=== PATIENT | female | born 1990 | race Two or more races ===

== ENCOUNTER 2016-12-16 14:01 | Outpatient (CLI) | payer MEDICAID ==
[2016-12-16 14:49] VITALS: BMI 28.2
== END 2016-12-16 15:20 | disposition home or self-care (01) ==
LOC: FBCOUT 14:01 → FBC 14:03 → FBCOUT 15:20
PROVIDERS: ATTEND Family Medicine
DX: O46.90 Antepartum hemorrhage, unspecified, unspecified trimester (principal); Z3A.00 Weeks of gestation of pregnancy not specified
CPT/HCPCS: 59025; 81002; G0463

== ENCOUNTER 2016-12-18 01:04 | Outpatient (CLI) | payer MEDICAID | END 2016-12-18 03:18 | disposition home or self-care (01) | LOC: FBCOUT 01:04 → FBC 01:04 → FBCOUT 03:18 | PROVIDERS: ATTEND Family Medicine | DX: O47.9 False labor, unspecified (principal); Z3A.00 Weeks of gestation of pregnancy not specified | CPT/HCPCS: 59025; 81002; G0463 ==

== ENCOUNTER 2016-12-18 08:38 | Outpatient (CLI) | payer MEDICAID ==
[2016-12-18 08:58] VITALS: BMI 28.7
== END 2016-12-18 12:06 | disposition home or self-care (01) ==
LOC: FBCOUT 08:38 → FBC 08:42 → FBCOUT 12:06
PROVIDERS: ATTEND Family Medicine
DX: O47.9 False labor, unspecified (principal); Z3A.00 Weeks of gestation of pregnancy not specified
CPT/HCPCS: 59025; 81002; G0463

== ENCOUNTER 2016-12-19 20:20 | Inpatient (IN) | payer MEDICAID ==
[2016-12-19 20:42] VITALS: BMI 28.2
[2016-12-19] MEDS ORDERED: PROMETHAZINE HCL 25 MG/ML VIAL IM ONE (22:36)
[2016-12-19] MEDS ORDERED: MORPHINE SULFATE 10 MG/ML SYRINGE IM ONE (22:37)
[2016-12-20] MEDS ORDERED: OXYTOCIN IN LR 500 ML IV ONE (01:20)
[2016-12-20] MEDS ORDERED: MINERAL OIL 25 ML BOT ONE (01:26)
[2016-12-20] MEDS ORDERED: IV START KIT ONE (01:26)
[2016-12-20] MEDS ORDERED: OXYTOCIN 10 UNITS/ML VIAL ONE (01:26)
[2016-12-20] MEDS ORDERED: LIDOCAINE 1% (PRES FREE) 30 ML VIAL ONE (01:27)
[2016-12-20] MEDS ORDERED: LIDOCAINE Viscous 2% 15 ML UDCUP ONE (01:27)
[2016-12-20] MEDS ORDERED: PUMP TUBING ONE (01:27)
[2016-12-20 02:42] LABS: HEMATOCRIT 41.4 % (37.0-47.0); HEMOGLOBIN 14.5 gm/l (12.0-16.0); MEAN CELL VOLUME 84.8 fl (81.0-99.0); MEAN CORPUSCULAR HEMOGLOBIN 29.7 pg (27.0-31.0); RED CELL DISTRIBUTION WIDTH 11.9 % (11.5-14.5)
--- NOTE | 2016-12-20 09:26 | PDOC36 ---
Provider Note Note: cc: Admission H&P HPI: 26 y.o. year old VERONICA 12/16/2016, by Ultrasound at 40w4d who presented earlier this morning with regular strong contractions every couple of minutes. REVIEW OF SYSTEMS GENERAL:~ No fever or headache EYES:~ No double or blurry vision. CARDIOVASCULAR:~ No chest pain. RESPIRATORY:~ No severe shortness of breath or cough. GASTROINTESTINAL:~ No nausea or vomiting or right upper quadrant pain.~ PSYCHIATRIC:~ No anxiety or depression. PROBLEMS Term Abnormal Quad Screen Abnormal quad screen OB HISTORY #: 1, Current PSH No past surgical history on file. SOC HX Reports that she has never smoked. She has never used smokeless tobacco. She reports that she does not drink alcohol or use illicit drugs. ALL No Known Allergies MEDICATIONS ~ MV-Min-Fe Fum-FA-DHA ( 1 PO), Take by mouth., Disp: , Rfl:~ PHYSICAL EXAMINATION VITAL SIGNS:~ AFVSS Estimated body mass index is 30.56 kg Weight as of 12/17/16: 80.695 kg (177 lb 14.4 oz). Total weight gain is 11.295 kg (24 lb 14.4 oz) FHT:~ 145 moderate variability positive accels negative decels category I [place]:~ q4-5 min SVE:~ 5/100/-2 GENERAL:~ No distress CARDIOVASCULAR:~ Regular rate and rhythm, no murmur, JVD or pedal edema. RESPIRATORY:~ Clear to auscultation bilaterally, respiratory effort is nonlabored at rest. GASTROINTESTINAL:~ Gravid no fundal tenderness NEUROLOGIC:~ Deep tendon reflexes are 2+ in the knees.~ Cranial nerves II-XII are grossly intact. PSYCHIATRIC:~ Alert and oriented x3, judgement and memory is intact, mood is pleasant. LABS & STUDIES O+ Antibody- Rubella Immune Hep B- HIV- GC/Chlamydia- Trep- Hgb 14.5 GBS Neg ULTRASOUNDS 13 wk - dating. revises dates. 19 wk anatomy grossly normal ASSESSMENT 26 y.o. year old VERONICA 12/16/2016, by Ultrasound at 40w4d in labor PLAN Admit for expectant management Evelio Andres MD M[facility]
[2016-12-20] MEDS ORDERED: NALOXONE HCL 0.4 MG/ML VIAL IV PRN (13:30)
[2016-12-20] MEDS ORDERED: ONDANSETRON 4 MG/2ML 2 ML VIAL IV PRN (13:30)
[2016-12-20] MEDS ORDERED: LACTATED RINGERS 500 ML IV PRN (13:30)
[2016-12-20] MEDS ORDERED: DIPHENHYDRAMINE HCL 50 MG/1 ML VIAL IV PRN (13:30)
[2016-12-20] MEDS ORDERED: METOCLOPRAMIDE HCL 5 MG/ML 2ML VIAL IV PRN (13:30)
[2016-12-20] MEDS ORDERED: NALBUPHINE HCL 20 MG/ML AMP IV PRN (13:30)
[2016-12-20] MEDS ORDERED: EPHEDRINE SULFATE 50 MG/ML 1ML VIAL IV PRN (13:30)
[2016-12-20] MEDS ORDERED: SODIUM CHLORIDE 0.9% 500 ML IV PRN (13:30)
[2016-12-20] MEDS: LACTATED RINGERS 1,000 ML IV PRN ×2 (15:16→16:33)
[2016-12-20] MEDS ORDERED: LACTATED RINGERS 1,000 ML IV SCH (15:30)
[2016-12-20] MEDS ORDERED: FENTANYL/ROPIVACAINE EPIDURAL 250 ML EP ONE (15:43)
[2016-12-20] MEDS ORDERED: EPIDURAL PUMP SET ONE (15:43)
[2016-12-20] MEDS ORDERED: FENTANYL/ROPIVACAINE EPIDURAL 250 ML EP SCH ×2 (15:45→16:56)
[2016-12-20] MEDS ORDERED: EPIDURAL PROCEDURE TRAY ONE (16:36)
[2016-12-20] MEDS ORDERED: ROPIVACAINE 0.5% 30 ML VIAL ONE (16:36)
--- NOTE | 2016-12-20 19:27 | PDOC36 ---
Provider Note Note: SUBJECTIVE: Pt comfortable OBJECTIVE: VS: AFVSS FHT: 140s moderate variability, positive accels, variable decels, category II [place]: q2-3 min SVE: 9/100/+1 ASSESSMENT: 26 yo G1 at 40 4/7 in labor PLAN: Continue expectant management
[2016-12-20] MEDS: LACTATED RINGERS 1,000 ML IV SCH (20:53)
--- NOTE | 2016-12-21 01:03 | PCMDEL ---
Delivery Note - Delivery Delivery (Date): 12/20/16 Delivery (Time): 23:58 Gender: Female Position: OA Umbilical Cord: 3 Vessel Delayed Cord Clamping:: 2-3 min Placenta:: 0015 EBL:: 350 mL Perineum:: 2nd degree perineal, bilateral labial Suture:: 2-0 Vicryl x 2, 3-0 Vicryl x 1 Anesthesia/Meds:: Epidural Length ROM:: 12 hrs Comments:: Delivered JOAQUIN, viable female, cord clamped and cut at 2 minutes, 2nd degree perineal with bilateral labial tears which were repaired in the usual fashion.
[2016-12-21] MEDS ORDERED: OXYCODONE HCL 5 MG TABLET PO PRN (01:04)
[2016-12-21] MEDS ORDERED: BENZOCAINE/MENTHOL 60 APPLIC/BOT TP PRN (01:04)
[2016-12-21] MEDS ORDERED: MAGNESIUM HYDROXIDE 30 ML UDCUP PO PRN (01:04)
[2016-12-21] MEDS ORDERED: HYDROCODONE/ACETAMINOPHEN 5/325MG TABLET PO PRN (01:04)
[2016-12-21] MEDS ORDERED: LANOLIN 50 APPLIC/7G TUBE TP PRN (01:04)
[2016-12-21] MEDS ORDERED: LACTATED RINGERS 1,000 ML IV PRN (01:04)
[2016-12-21] MEDS ORDERED: SENNOSIDES 8.6 MG TABLET PO PRN (01:04)
[2016-12-21] MEDS: IBUPROFEN 800 MG TABLET PO PRN ×3 (02:19→18:09)
[2016-12-21] MEDS: LACTATED RINGERS 1,000 ML IV SCH (05:40)
[2016-12-21] MEDS: DOCUSATE SODIUM 100 MG CAPSULE PO PRN (10:06)
--- NOTE | 2016-12-21 11:51 | PDOC44 ---
- Subjective Reports Pain Tolerable, Reports , Reports Lochia Moderate, Reports Tolerating Regular Diet, Denies Nausea, Denies Vomiting, Denies Fever - Objective Temp Pulse Resp BP Pulse Ox 98.2 F 85 18 96/58 12/21/16 08:12 12/21/16 08:12 12/21/16 08:12 12/21/16 08:12 Current Medications Generic Name Dose Route Start Last Admin Trade Name Freq PRN Reason Stop Dose Admin Acetaminophen/Hydrocodone Bitart 1 - 2 tab 12/21/16 01:04 [place] 5/325 PO Q4H PRN Pain (Moderate) Benzocaine/Menthol 1 applic 12/21/16 01:04 12/21/16 02:20 Dermoplast TP 1 bot PRN PRN Administration Patient Comfort Docusate Sodium 100 mg 12/21/16 01:04 12/21/16 10:06 Colace PO 100 mg DAILY PRN Administration Comfort Emollient Ointment 1 applic 12/21/16 01:04 [id number] TP PRN PRN sore nipples Lactated Ringer's 1,000 mls @ 100 mls/hr 12/21/16 01:04 Lactated Ringers IV .Q10H PRN Titrate per clinical situation Ibuprofen 800 mg 12/21/16 01:04 12/21/16 10:06 Motrin PO 800 mg Q8H PRN Administration Pain (Mild) Magnesium Hydroxide 30 ml 12/21/16 01:04 Milk Of Magnesia PO BEDTIME PRN Constipation Oxycodone HCl 5 - 10 mg 12/21/16 01:04 Roxicodone PO Q3H PRN Pain (Severe) Senna 17.2 mg 12/21/16 01:04 Senokot PO BEDTIME PRN Comfort Sodium Chloride 10 ml 12/20/16 09:00 12/21/16 01:09 Normal Saline 10ml Flush IV 10 ml Q8HR CATHERINE Administration Sodium Chloride 10 ml 12/21/16 01:04 Normal Saline 10ml Flush IV PRN PRN IV Flush - Physical Exam Psych/Mental Status: Mood/Affect Appropriate, Bonding Well Lungs: Clear to Auscultation Bilaterally Cardiovascular: Regular Rate and Rhythm, No Murmur Fundus: Firm, Midline, At Umbilicus Extremities: No Edema - Problems:Assessment/Plan (1) Vaginal delivery Status: AcuteAssessment/Plan: Doing well. Updated on baby progress. Routine care. Disposition: Stable
[2016-12-22] MEDS: IBUPROFEN 800 MG TABLET PO PRN (04:54)
[2016-12-22 06:44] LABS: HEMATOCRIT 31.7 % (37.0-47.0); HEMOGLOBIN 10.9 gm/l (12.0-16.0)
--- NOTE | 2016-12-22 09:43 | PDOC39B ---
Hospital Course: ADMIT DATE: 12/20/16 DISCHARGE DATE: 12/22/16 ADMISSION DIAGNOSES: Intrauterine at term, Active Labor PROCEDURES: none HISTORY OF PRESENT ILLNESS: 26 year old G1 T0 L0 at 40 weeks 4 days presented in active labor. HOSPITAL COURSE: The patient had normal vaginal delivery on 12/20/16. By day of discharge the patient is ambulating, eating, and voiding without difficulty. Pain is controlled and lochia is appropriate. She is . - Physical Exam Vital Signs: Temp Pulse Resp BP Pulse Ox 98.4 F 90 16 109/73 12/22/16 01:13 12/22/16 01:13 12/22/16 01:13 12/22/16 01:13 General: Afebrile Psych/Mental Status: Mood/Affect Appropriate, Judgment/Insight Intact, Bonding Well Neurological: Grossly Intact, Alert HEENT: Atraumatic, EOMI Lungs: Clear to Auscultation Bilaterally, Normal Air Movement Cardiovascular: Regular Rate and Rhythm, Normal S1, Normal S2, No Murmur Fundus: Firm, Midline, Below Umbilicus - Discharge Diagnosis (1) Vaginal delivery Status: AcuteAssessment/Plan: Doing well. Updated on baby progress. Routine care. Stable for dc home. - Discharge Plan Condition: Stable Disposition: Home Instruction Forms: Vaginal Discharge Instructions Prescriptions: Docusate Sodium [COLACE 100 MG CAPSULE (SHF)] 100 mg PO DAILY PRN #60 capsule PRN Reason: Comfort Ibuprofen [IBUPROFEN 800 MG TABLET (SHF)] 800 mg PO Q8H PRN #100 tablet PRN Reason: Pain (Mild) Follow-Up: Tanya Man MD [Staff Physician] - In 6 weeks
[2016-12-22] MEDS: DOCUSATE SODIUM 100 MG CAPSULE PO PRN (10:34)
[2016-12-22 13:16] VITALS: BP 118/70
== END 2016-12-22 12:10 | disposition home or self-care (01) | DRG 775 ==
LOC: FBCOUT 20:20 → FBC 20:20 → FBCOUT 12-20 01:15
PROVIDERS: ADMIT Family Medicine; ATTEND Family Medicine
PROC: 0KQM0ZZ Repair Perineum Muscle, Open Approach (ICD-10-PCS; principal; 2016-12-20)
PROC: 10E0XZZ Delivery of Products of Conception, External Approach (ICD-10-PCS; 2016-12-20)
DX: O70.1 Second degree perineal laceration during delivery (principal); Z37.0 Single live birth; Z3A.40 40 weeks gestation of pregnancy